=== PATIENT | female | born 1990 | race Caucasian/White ===

== ENCOUNTER 2019-04-02 16:20 | Inpatient (IN) | payer MEDICAID ==
[~2019-04-02] VITALS: Ht 152.4 cm; Wt 55.1 kg
--- NOTE | 2019-04-02 16:30 | NUR ---
Pt arrives to medical unit rm [id number] via EMS from [facility]. Pt awake and alert, oriented x 4. Breath sounds CTAB. BS active x 4. Pt reports pain to abd 8 out of 10 on pain scale. Saline lock IV's to right AC and right forearm without s/s of complications. Physical assessment otherwise unremarkable. No further needs reported. Call light in reach.
[2019-04-02 17:35] VITALS: BP 101/58; PULSE 77
[2019-04-02 19:20] VITALS: BP 95/52; PULSE 77; TEMP 98.6
[2019-04-02 19:21] VITALS: BP 94/52; PULSE 77; TEMP 998.6
--- NOTE | 2019-04-02 19:30 | NUR ---
Pt resting in bed. Day shift nurse gives report. Antibiotic hung. Denies any BM since admission. Call light in reach.
[2019-04-02] MEDS ORDERED: ADDERALL XR30 MG PO (20:17)
[2019-04-02] MEDS ORDERED: ADDERALL XR20 MG PO (20:18)
[2019-04-02 20:59] VITALS: BP 94/52; PULSE 77; TEMP 98.6
[2019-04-03] VITALS (14 sets, daily range): BP systolic 91–106; BP diastolic 44–73; PULSE 54–81; TEMP 97.5–98.8
--- NOTE | 2019-04-03 00:20 | NUR ---
All oral fluid taken from pt. NPO at this time. Aware she can not have anything to eat or drink. Drank all of Prep for colonoscopy tomorrow at noon.
--- NOTE | 2019-04-03 04:12 | NUR ---
Pt has not had a BM since beginning the prep. Will continiue to monitor. Call light in reach.
[2019-04-03 06:20] LABS: BASO % 0.4 % (0.0-2.0); EOS % 0.6 % (0-4.0); GRAN # 2.3 (1.4-6.5); GRAN % 48.2 % (42.2-75.2); LYMPH # 2.1 (1.2-3.4); LYMPH % 45.1 % (20.0-51.0); MEAN CELL VOLUME 85 fl (80.0-100.0); MEAN CORPUSCULAR HGB CONC 33 g/dl (33.0-37.0); MEAN PLATELET VOLUME 11.9 fl (7.4-10.4); MONO # 0.3 (0.1-0.6); MONO % 5.5 % (1.7-9.3); PLATELET COUNT 135 K/mm3 (130-400); RED BLOOD COUNT 3.44 M/mm3 (4.10-5.30); REDCELL DISTRIBUTION WIDTH-CV 13.9 % (11.5-14.5)
[2019-04-03 06:21] LABS: HEMATOCRIT 29.3 % (37.0-47.0); HEMOGLOBIN 9.6 g/dl (12.5-16.0); MEAN CORPUSCULAR HEMOGLOBIN 28 pg (27.0-31.0)
[2019-04-03 06:44] LABS: BILIRUBIN,TOTAL 0.2 mg/dL (0.0-1.0); CREATININE, serum 0.66 (0.52-1.25); POTASSIUM 3.1 mmol/L (3.4-5.0); TOTAL PROTEIN 5.6 gm/dL (6.4-8.2)
--- NOTE | 2019-04-03 08:06 | NUR ---
Pt had a quiet shift. Only had 1 brown liquid BM from prep. Report given to JAIR Crump.
--- NOTE | 2019-04-03 09:30 | NUR ---
Pt assessment completed and charted. Pt laying in bed this morning, sleepy but arouses to name. Denies wanting anything for pain at the moment. Denies SOB, dizziness, N/V. Pt indpendent in room and on room air. RW INT IV patent. RAC IV INT patent. No other needs at this time. pt scheduled for colonoscopy early afternoon.
--- NOTE | 2019-04-03 10:56 | NUR ---
SW met with patient to discuss discharge planning. Patient is a current resident at [facility]. Patient reports she will return there after her procedure. Patient signed choice form. Patient's PCP is Dr Morataya. Prior to being admitted to [facility], patient did not use any home health services. Patient also uses a walker for ambulation. Patient reports she does have a [facility]PO[facility].
--- NOTE | 2019-04-03 11:07 | NUR ---
SW attended clinical rounds to discuss discharge planning. Patient lives independently at home with her children. Patient's PCP is in [place] and she obtains prescriptions from [facility] in [place]. Patient does not use DME or home health. SW does not anticipate any discharge needs.
--- NOTE | 2019-04-03 11:35 | NUR ---
patient down for colonoscopy at this time. escorted by Carlos from surgery via bed. preop NS at 30 ml/hr hung
--- NOTE | 2019-04-03 13:15 | NUR ---
PATIENT BACK FROM PROCEDURE. POST OP VITALS STARTED.
--- NOTE | 2019-04-03 19:29 | NUR ---
Pt had uneventful rest of day. Post op vitals stable after procedure. Pt tolerating liquids this evening. Pt c/o abdominal pain. This nurse administered PRN tylenol. NS w/ 20 meq KCL infusing at 125 ml/hr in RWR with no complications. pt consent for EGD signed and on chart. No other needs at this time. Report given to JAIR Aleman to resume care.
--- NOTE | 2019-04-03 23:47 | NUR ---
Pt reports feeling much better at this time. SO at bedside.
[2019-04-04] VITALS (7 sets, daily range): BP systolic 96–124; BP diastolic 50–85; PULSE 56–79; TEMP 98.4
--- NOTE | 2019-04-04 01:12 | NUR ---
Pt asleep with resp. even and unlabored. SO remains at bedside. IVF continue at 125mL/hr. Will continue to monitor.
--- NOTE | 2019-04-04 05:48 | NUR ---
Pt has slept most of the shift. Has had 1 dose of Morphine during the night. NPO since midnight for EGD this AM. Consent signed and on chart. Call light within reach.
[2019-04-04 06:29] LABS: EOS # 0.1 (0.0-0.7); EOS % 1.4 % (0-4.0); GRAN # 1.3 (1.4-6.5); GRAN % 30.4 % (42.2-75.2); LYMPH # 2.6 (1.2-3.4); LYMPH % 61.7 % (20.0-51.0); MEAN CELL VOLUME 86 fl (80.0-100.0); MEAN CORPUSCULAR HGB CONC 33 g/dl (33.0-37.0); MONO # 0.2 (0.1-0.6); PLATELET COUNT 162 K/mm3 (130-400); RED BLOOD COUNT 3.39 M/mm3 (4.10-5.30); REDCELL DISTRIBUTION WIDTH-CV 14.1 % (11.5-14.5)
[2019-04-04 06:34] LABS: HEMATOCRIT 29.2 % (37.0-47.0); HEMOGLOBIN 9.5 g/dl (12.5-16.0); MEAN CORPUSCULAR HEMOGLOBIN 28 pg (27.0-31.0)
[2019-04-04 06:40] LABS: CREATININE, serum 0.68 (0.52-1.25); MAGNESIUM 1.8 mg/dL (1.6-2.3); POTASSIUM 3.8 mmol/L (3.4-5.0)
--- NOTE | 2019-04-04 07:45 | NUR ---
Pt to endoscopy for procedure via bed. IVF's to gravity per preop orders.
--- NOTE | 2019-04-04 08:30 | NUR ---
Pt back to room from endo following procedure, drowsy but alert to stimuli. IVF's infusing by gravity through right forearm site without s/s of complications. Saline lock IV to right AC without s/s of complications. Pt reports slight cramping to abd, denies other needs. VSS. Call light in reach.
[2019-04-04] MEDS ORDERED: PROTONIX 40MG T40 MG PO (08:50)
[2019-04-04] MEDS ORDERED: BENTYL 10MG10 MG/CAP PO (08:50)
[2019-04-04] MEDS ORDERED: ZOFRAN ODT4 MG PO (09:36)
--- NOTE | 2019-04-04 11:59 | NUR ---
Discharge instructions reviewed with pt regarding new medications, outpatient testing, and follow-up appointments. Pt verbalizes understanding, discharged home, escorted out of facility via WC accompanied by this nurse and pt's .
--- NOTE | 2019-04-04 13:41 | NUR ---
Prescriptions called to [id number] pharmacy in [place] per pt's request.
== END 2019-04-04 12:01 | disposition home or self-care (01) | DRG 381 ==
LOC: MEDICAL 16:20
PROVIDERS: Internal Medicine Gastroenterology; Nurse Practitioner Family; ADMIT Student in an Organized Health Care Education/Training Program
PROC: 0DJD8ZZ Inspection of Lower Intestinal Tract, Via Natural or Artificial Opening Endoscopic (ICD-10-PCS; 2019-04-03)
PROC: 0DJ08ZZ Inspection of Upper Intestinal Tract, Via Natural or Artificial Opening Endoscopic (ICD-10-PCS; principal; 2019-04-04 08:00)
DX: Q43.0 Meckel's diverticulum (displaced) (hypertrophic) (principal); K92.1 Melena; N17.9 Acute kidney failure, unspecified; F90.9 Attention-deficit hyperactivity disorder, unspecified type; F17.210 Nicotine dependence, cigarettes, uncomplicated; Z88.1 Allergy status to other antibiotic agents; Z88.5 Allergy status to narcotic agent; Z88.8 Allergy status to other drugs, medicaments and biological substances; I95.9 Hypotension, unspecified; E86.0 Dehydration; K29.70 Gastritis, unspecified, without bleeding
CPT/HCPCS: 99222-AI; 99232-AI; 99239; A4216; C9113; J0696; J2270; J2405; J2704; J2765; J3480; J7030

== ENCOUNTER → 2019-04-06 | Outpatient (CLI) | payer MEDICAID ==
[~2019-04-06] MED LIST: ADDERALL XR20 MG PO; ADDERALL XR30 MG PO; BENTYL 10MG10 MG/CAP PO; PROTONIX 40MG T40 MG PO; ZOFRAN ODT4 MG PO
== END ==
LOC: COL.RAD 08:36
DX: K92.2 Gastrointestinal hemorrhage, unspecified (principal)
CPT/HCPCS: A9512